=== PATIENT | female | born 1950 | race Caucasian/White ===

== ENCOUNTER 2016-06-03 11:26 | Inpatient (IN) ==
--- NOTE | 2016-06-02 20:45 | Discharge Summary ---
<Loren Mcintosh - Last Filed: 06/09/16 20:24> Date of Encounter: 06/04/16 - Discharge Diagnosis (1) Rotator cuff tear arthropathy of right shoulder Status: Acute (2) HTN (hypertension) Priority: Secondary Status: Chronic Qualifiers: Hypertension type: essential hypertension Qualified Code(s): I10 - Essential (primary) hypertension (3) Chronic pain Priority: Secondary Status: Chronic Qualifiers: Chronic pain type: other chronic pain Qualified Code(s): G89.29 - Other chronic pain - Discharge Medications Home Medications: OxyCODONE Immed Rel [Roxicodone 5 MG] 5 - 10 mg PO Q6HR PRN #40 tablet 06/02/16 [Rx] BuPROPion XL (24 HR) [Wellbutrin Xl] 150 mg PO DAILY 06/03/16 [History] Cyclobenzaprine [Flexeril] 10 mg PO TID 06/03/16 [History] Levothyroxine [Synthroid] 50 mcg PO 0630 06/03/16 [History] Losartan/HCTZ [Hyzaar 50-12.5 Tablet] 1 each PO DAILY 06/03/16 [History] Oxycodone HCl 10 mg PO DAILY PRN 06/03/16 [History] Promethazine [Phenergan] 25 mg PO Q12H PRN 06/03/16 [History] Ranitidine HCl [Zantac] 150 mg PO HS PRN 06/03/16 [History] Allergies/Adverse Reactions: Allergies Amoxicillin [From Augmentin] Adverse Reaction (Verified 06/03/16 12:33) Rash clavulanic acid [From Augmentin] Adverse Reaction (Verified 06/03/16 12:33) Rash Primary care physician: Osvaldo Mitchell CNP - Patient Status Disposition: Home, Self-Care Condition: Good Functional capacity at discharge: independent ambulation Overall status at discharge: patient is back to baseline - Discharge Instructions Instructions: Chronic Hypertension (DC) Follow Up With: Kelvin York MD [Partnered Physician] - 07/02/16 9:20 am Loren Mcintosh PAC [Physician Sitecore Developer] - 06/13/16 8:30 am Osvaldo Mitchell CNP [Primary Care Provider] - Additional Instructions: Discharge Instructions: Total Shoulder Please call [facility] ([phone]), your Primary Care Physician, or report to the Emergency Room if you have any of the following symptoms: Nausea, vomiting, fever greater that 101.5, swelling, chest pain, shortness of breath, increased pain/redness/drainage/odor for your incision site, numbness/ tingling, or any other concerning symptoms. ACTIVITY: Always keep your arm in the sling. Do not raise your arm away from your body. Do not use your arm to help with getting in or out of bed. No weight bearing permitted. Only perform those exercises given to you by your therapist. MEDICATIONS: Upon discharge resume your home medications. Take all the medications as prescribed. Take a stool softener if taking narcotic pain medications. Stool softeners are only effective if you drink enough fluids. Drink 6-8 glass of water or fluids a day, unless this is not allowed for another health problem. Despite using stool softeners, if you haven't had a bowel movement in 3 days, please switch to a gentle laxative. Gentle laxatives are sold over the counter. You should have a bowel movement within 24 hours, if not call the office. You will be discharged from the hospital with a prescription for pain medication. You are encouraged to decrease the use of narcotic pain medication as tolerated. Should you require a refill, please call the office. [facility] prescribes narcotic pain medication for only 4-6 weeks after surgery. If you require pain medication beyond this time period, you may be referred to your Primary Care Physician or to the Pain Clinic for further evaluation. Plan ahead for refills on pain medication as many narcotics either need to be picked up at the office or mailed. It is best to call 48-72 hours in advance of needing a prescription refill so you don't run out of medication. To help control the post-operative pain, you may take NSAIDs (Aleve,Advil, Motrin, ibuprofen, naprosyn) or Tylenol as prescribed on the bottle in addition to the pain medication. ANTICOAGULATION (blood thinners): Continue your Aspirin, Lovenox or Coumadin as prescribed to help prevent a blood clot in the leg or in the lungs. As long as your incision remains dry and you tolerate the NSAIDs (Aleve, Advil, Motrin, ibuprofen, naprosyn), it is OK to use the NSAIDS while you are taking your anticoagulation medication. Should your incision start to drain, stop the NSAID and contact our office. Common symptoms of blood clot in the legs include: localized pain, swelling, calf tenderness, redness or discoloration of the skin. Blood clot in the lung symptoms include: shortness of breath, rapid pulse, sweating, and chest pain that worsens with deep breathing, coughing up blood, lightheadedness, and feelings of anxiety. If you experience any of these symptoms notify your physician immediately, go to the emergency room, or if having trouble breathing , call 911. WOUND CARE: Leave the dressing on for 7 days. You may change the dressing if it becomes saturated greater than 50%. You can shower but not a tub bath or submerge your incision in water. Wash your hands with antibacterial soap, rinse and dry prior to any wound care. If you have juan carlos the visiting nurse or rehab facility can remove the stapes 10-14 days after surgery and place steri -strips across the wound. Leave the steri-strips in place until they fall off on their won. You may let water from the shower run on top of the steri- stirips. If you do not have a visiting nurse or rehab facility, you will need to return to the office at 10-14 days for the juan carlos to be removed. FOLLOW-UP: Please follow up with your surgeon in the orthopedic clinic, as scheduled - Hospital Course Hospital course: Ms. Zhang is a 66 year old female - Time Spent with Patient Total time spent providing and/or coordinating discharge services: <Kelvin York - Last Filed: 06/12/16 10:22> Date of Encounter: 06/12/16 Time of Encounter: 10:21 - Discharge Diagnosis (1) Rotator cuff tear arthropathy of right shoulder Priority: Primary Status: Acute (2) Chronic pain Priority: Secondary Status: Chronic Qualifiers: Chronic pain type: other chronic pain Qualified Code(s): G89.29 - Other chronic pain (3) HTN (hypertension) Priority: Secondary Status: Chronic Qualifiers: Hypertension type: essential hypertension Qualified Code(s): I10 - Essential (primary) hypertension Primary care physician: Osvaldo Mitchell CNP - Patient Status Functional capacity at discharge: independent ambulation Overall status at discharge: patient is back to baseline - Hospital Course Hospital course: Ms. Zhang is a 66 year old female The patient had an uneventful postoperative course. They received antibiotics and physical therapy and were discharged in stable condition. There will follow -up in the office in 2 weeks. - Time Spent with Patient Total time spent providing and/or coordinating discharge services:
--- NOTE | 2016-06-03 12:02 | History & Physical Report ---
Date of Encounter: 06/03/16 Time of Encounter: 12:01 24 Hour HP Update - Instructions Instructions: If the History and Physical is less than 30 days old and was completed prior to A.M. admission and or procedure and has NOT been updated on calendar day of procedure please complete this update prior to performing procedure. - Update Patient reports changes in Medical Condition: No Changes in assessment/condition: No Changes in Medication: No Preop tests/diagnostics Reviewed: Yes Surgery Remains Indicated: Yes Consent for Planned Operative Procedure(s) Verified: Yes - Pre-Operative Checklist Preoperative Checklist Indicated: No Prophylactic Antibiotic Ordered: Yes Is VTE Prophylaxis Indicated?: Yes
[2016-06-03] MEDS ORDERED: Clindamycin 900 MG/50 ML 900 MG/50 ML IV.SOLN IVPB ONE ×2 (12:09→12:20)
[2016-06-03] MEDS ORDERED: Ringers Solution, Lactated 1,000 ML IVC SCH ×2 (12:15→16:25)
[2016-06-03] MEDS ORDERED: ROPIVACAINE HCL/PF 0.5% 30 ML VIAL IJ ONE (13:09)
[2016-06-03] MEDS ORDERED: Famotidine 20 MG/2 ML VIAL IVP ONE (13:09)
[2016-06-03] MEDS ORDERED: *HR* Labetalol 100 MG/20 ML MDV IVP PRN (13:16)
[2016-06-03] MEDS ORDERED: *HR* HYDROmorphone (PF) 1 MG/ML SYRINGE IVP PRN ×2 (13:16→16:25)
[2016-06-03] MEDS ORDERED: *HR* Promethazine 25 MG/ML VIAL IVP PRN (13:16)
[2016-06-03] MEDS ORDERED: *HR* Midazolam HCl 2 MG/2 ML VIAL ONE (13:24)
[2016-06-03] MEDS ORDERED: Ondansetron 4 MG/2 ML VIAL ONE (13:24)
[2016-06-03] MEDS ORDERED: Dexamethasone 4 MG/ML VIAL ONE (13:24)
[2016-06-03] MEDS ORDERED: Lidocaine -MPF 2% 2 ML VIAL ONE (13:24)
[2016-06-03] MEDS ORDERED: *HR* Propofol 200 MG/20 ML VIAL IVP ONE (13:24)
[2016-06-03] MEDS ORDERED: *HR* FentaNYL (PF) 100 MCG/2 ML VIAL ONE ×2 (13:24→15:18)
--- NOTE | 2016-06-03 13:31 | Anesthesia Evaluation PreOp ---
Date of Encounter: 06/03/16 Time of Encounter: 13:30 - Past History Planned Operation: Rt Total Shoulder Replacement Cardiac History: HTN, Hyperlipidemia, Arrhythmia Pulmonary History: Denies Any Significant HX SUPPORTIVE EMPLOYMENT CASE MANAGER History: Denies Any Significant HX Other Medical History: Thyroid, GERD Anesthesia History: No Prior Anesthetic Complications : No Alcohol Use: none Drug use: none Medications and Allergies OxyCODONE Immed Rel [Roxicodone 5 MG] 5 - 10 mg PO Q6HR PRN #40 tablet 06/02/16 [Rx] BuPROPion XL (24 HR) [Wellbutrin Xl] 150 mg PO DAILY 06/03/16 [History] Cyclobenzaprine [Flexeril] 10 mg PO TID 06/03/16 [History] Levothyroxine Sodium [Levo-T] 25 mcg PO DAILY 06/03/16 [History] Losartan/HCTZ [Hyzaar 50-12.5 Tablet] 1 each PO DAILY 06/03/16 [History] Promethazine [Phenergan] 25 mg PO Q12H PRN 06/03/16 [History] Ranitidine HCl [Zantac] 150 mg PO HS PRN 06/03/16 [History] Allergies Amoxicillin [From Augmentin] Adverse Reaction (Verified 06/03/16 12:33) Rash clavulanic acid [From Augmentin] Adverse Reaction (Verified 06/03/16 12:33) Rash - Meds/Allergy Pre-op Review Medications Reviewed: Yes Allergies Reviewed: Yes Beta Blockers on Current Med List: No Anesthesia Results - Labs Laboratory Tests 05/20/16 05/20/16 11:15 11:15 Hgb 14.1 Hct 41.6 Plt Count 250 Sodium 140 Potassium 4.2 BUN 16 Creatinine 0.82 - Imaging EKG: report reviewed (SR) Anesthesia Exam O2 Sat Height 1.6 m Height 1.6 m Weight 70.307 kg Weight 70.307 kg O2 Sat by Pulse Oximetry 97 O2 Sat by Pulse Oximetry 97 Vital Signs Temp Pulse Resp BP Pulse Ox 97.5 F L 108 18 146/84 97 06/03/16 11:45 06/03/16 11:45 06/03/16 11:45 06/03/16 11:45 06/03/16 11:45 Height: 5'3 Weight: 155 lbs NPO (# of Hours): MN Pain Scale: 0 - HEENT Pupil (Motor): Pupils equal, EOMI Mallampati: II Teeth: Normal Oral Opening: Greater than 3 - SUPPORTIVE EMPLOYMENT CASE MANAGER LOC: Oriented SUPPORTIVE EMPLOYMENT CASE MANAGER Motor: Normal RUE, Normal LUE, Normal RLE, Normal LLE, Normal Face SUPPORTIVE EMPLOYMENT CASE MANAGER Sensory: Normal: RUE, LUE, RLE, LLE, Face - Cardiac Rhythm: Regular Murmur: None JVD: No Carotid Bruit: No - Pulmonary Breath Sounds: bilateral Clear Respiratory Effort: Symmetrical Anesthesia Assess/Plan ASA Score: 3 (HTN Arrhythmia Hypothyroid) Modified [place] Scale for Level of Consciousness: Cooperative, oriented, and tranquil Anesthetic Plan: General, Regional Monitoring Plan: Standard Monitors Recovery Plan: PACU (Discussed GA and RA, agrees to proceed)
[2016-06-03] MEDS ORDERED: Tetracaine/PF 20 MG/2 ML AMPUL SPINA ONE (13:57)
--- NOTE | 2016-06-03 14:19 | Anesthesia Procedures ---
Date of Encounter: 06/03/16 Time of Encounter: 13:30 Procedures: Anesthesia - Nerve Block Procedure Date: 06/03/16 Time: 14:00 Pre-op Diagnosis: Rt Shoulder Arthropathy Surgical Procedure: Rt Total Shoulder Replacement Checklist: Correct Patient Identifier Correct side: Right Blood Thinner: No Monitor Applied: EKG, BP, Pulse Oximetry Supplemental Oxygen via Nasal Cannula (L/min): 2 Sedation: Versed (mg): 2 Sedation: Fentanyl (mcg): 100 Indication: Post Op Analgesia Block Type: Supraclavicular Catheter placed: No Depth at skin (cm): 2 Sterile Technique: Yes Ultrasound used: Yes Anatomy identified: Yes Visual spread of Local: Yes Neuro Stimulation: No Blood on Needle Aspiration: No Smooth Injection of Local: Yes Pain with Injection of Local: No Prep: Chlorhexadine Needle: 22 x 50 mm Stimuplex Local: Tetracaine (20), Ropivacaine (0.5%) Volume (cc): 30 Number of Attempts: 1 Complications: None/effective block Vitals: Vital Signs/O2 Sat/Glucose, Most Current Temp Pulse Resp BP Pulse Ox 06/03/16 14:15 94 16 149/85 97 06/03/16 14:02 97 16 144/92 96 06/03/16 13:51 100 17 149/100 99 06/03/16 13:45 100 18 145/104 99 06/03/16 12:13 97.5 F L 108 18 146/84 97 06/03/16 11:45 97.5 F L 108 18 146/84 97
[2016-06-03] MEDS ORDERED: Bupivacaine/Clonidine Syringe 1 EACH SYRINGE ONE (14:43)
--- NOTE | 2016-06-03 15:16 | Orthopedic Operative Note ---
Date of procedure: 06/03/16 Pre-op diagnosis: Right shoulder cuff tear arthropathy Post-op diagnosis: same Procedure: Procedure: Right Total Shoulder Replacment Reverse, biceps tenodesis Estimated blood loss: 100 cc Hardware:Arthrex medium glenoid baseplate, 2 4.5 screws. 1 6.5 screw, 39 glenosphere, 6 humeral stem, poly insert 3 and 6 metal Exam Under anesthesia: Full motion no instability Procedural Notes: Grade 3 arthritic changes humeral head irreparable tear rotator cuff Operative procedure: The patient was brought to the operating room and placed on the operating room table. After general anesthesia was administered the operative shoulder was examined. Findings were noted. The patient was placed in the modified beachchair position. All pressure points were padded appropriately. And the head was stabilized in the neutral position. The operative extremity was prepped and draped in the sterile surgical fashion. The patient received IV antibiotics prior to skin incision. A standard deltopectoral approach was made to the operative shoulder. Incision was made to the skin and subcutaneous tissue,hemo stasis was obtained with Bovie cautery. Using careful blunt dissection the cephalic vein was identified and mobilized medially. The deltopectoral interval was developed and the clavipectoral fascia was incised. The subscap was released off the lesser tuberosity and tagged with #2 FiberWire suture. The humerus was dislocated patient noted to have irreparable tear supraspinatus tendon and grade 3 arthritic changes humeral head, and the humeral cut was made along the anatomic neck. Anterior and posterior Bankart retractors were placed to expose the glenoid. The glenoid guide was seated and the centering hole was made. It was reamed with the appropriate medium reamer. The medium baseplate was seated and secured with (2) 4.5 screws and one 6.5 screw. The baseplate was irrigated and dried and the 39 lateral Glenosphere was seated and secured with the Alberts taper. The Alberts taper was tested and found to be secure the humerus was redislocated and prepared with the diaphyseal reamers, followed by a broaching process up to the appropriate size 6 in the patient's anatomic version. The metaphyseal reamer was then utilized. Trial reduction found the shoulder to be relocatable. Trial components were removed and drill holes were placed in the lesser tuberosity. They were filled with #5 FiberWire suture incorporating the biceps tendon. These sutures were used for a biceps tenodesis. The appropriate 6 stem was impacted in place in the patient's anatomic version. Trial reduction found the shoulder to be relocatable and stable with the appropriate 6 metal 3 Krissy Trial component was removed and the real 6 metal 3 Krissy was seated and secured the shoulder was reduced. The shoulder had excellent motion and excellent stability and no evidence of dislocation. The deep tissue was irrigated with pulse irrigation. The subscap was irreparable, the biceps was tenodesed. The deltopectoral interval was closed with a running #1 PDS suture, subcutaneous tissue was irrigated and closed with 0 PDS suture, the skin was closed with Dermabond. The patient was placed in a sterile dressing, abduction brace and extubated. The patient was then transferred to the recovery room in stable condition. Anesthesia: YAKOV Surgeon: Kelvin York Field Staff Manager: Loern Mcintosh Condition: stable Disposition: PACU
[2016-06-03 16:04] LABS: Hematocrit 37.8 % (35.3-44.9); Hemoglobin 12.4 g/dL (11.5-15.4)
--- NOTE | 2016-06-03 16:08 | Anesthesia Evaluation Post Op ---
Date of Encounter: 06/03/16 Time of Encounter: 16:08 - Vital Signs Vital Signs: Vital Signs/O2 Sat, Most Current Temp Pulse Resp BP Pulse Ox 97.3 F L 94 14 137/85 95 06/03/16 15:38 06/03/16 15:58 06/03/16 15:58 06/03/16 15:58 06/03/16 15:58 - Lungs Lungs: Clear Ascult./Percussion - Airway Airway: Non-obstructed - Cardiovascular Regular Rate - Mental Status Mental Status: Alert & Oriented, Answers Appropriately - Pain Pain Scale: 0 Pain Scale used: Numeric (1 - 10) - Nausea Vomiting Nausea Vomiting: Not Present - Hydration Hydration: Ice chips, Has not voided - Discharge PostOp Status: Transfer Patient to floor
[2016-06-03] MEDS ORDERED: MOM Conc 10 ML UD.LIQ PO PRN (16:25)
[2016-06-03] MEDS ORDERED: Clindamycin 900 MG/50 ML 900 MG/50 ML IV.SOLN IVPB SCH (16:25)
[2016-06-03] MEDS ORDERED: Sennosides 8.6 MG TABLET PO PRN (16:25)
[2016-06-03] MEDS ORDERED: Temazepam 15 MG CAPSULE PO PRN (16:25)
[2016-06-03] MEDS ORDERED: *HR* OxyCODONE Immed Rel 5 MG TABLET PO PRN ×2 (16:25)
[2016-06-03] MEDS ORDERED: Acetaminophen 325 MG TABLET PO PRN (16:25)
[2016-06-03] MEDS ORDERED: Albuterol Neb 1.25 MG/3 ML VIAL IH ONE (16:25)
[2016-06-03] MEDS ORDERED: Famotidine 20 MG TABLET PO PRN (16:25)
[2016-06-03] MEDS ORDERED: Naloxone 0.4 MG/ML INJ IVP PRN (16:25)
[2016-06-03] MEDS ORDERED: Ondansetron 4 MG/2 ML VIAL IVP PRN (16:25)
[2016-06-03] MEDS ORDERED: *HR* Enoxaparin 30 MG/0.3 ML SYRINGE SQ SCH ×2 (18:00)
[2016-06-03 18:31] VITALS: BP 122/83
[2016-06-04] MEDS ORDERED: Losartan/HCTZ 50-12.5 TABLET PO SCH (09:00)
[2016-06-04] MEDS ORDERED: BuPROPion XL (24 HR) 150 MG TABLET PO SCH (09:00)
[2016-06-04] MEDS ORDERED: Levothyroxine 25 MCG TABLET PO SCH (09:00)
== END 2016-06-03 19:10 | disposition home or self-care (01) | DRG 483 ==
LOC: SAMDAY 11:26 → 3NENU 16:35
PROVIDERS: ADMIT Orthopaedic Surgery; ATTEND Orthopaedic Surgery